=== PATIENT | male | born 1975 | race Caucasian/White ===

== ENCOUNTER 2021-07-01 10:23 | Day surgery (SDC) | payer OTHER ==
[2021-06-22 10:21] LABS: BASOPHILS # (AUTO) 0.1 X10'3 (0-0.2); BASOPHILS % (AUTO) 1.2 % (0-1); EOSINOPHILS # (AUTO) 0.4 X10'3 (0-0.9); EOSINOPHILS % (AUTO) 4.8 % (0-6); LYMPHOCYTES # (AUTO) 2.4 X10'3 (1.1-4.8); LYMPHOCYTES % (AUTO) 27.5 % (21-51); MEAN CORPUSCULAR HEMOGLOBIN 30.7 PG (27.0-31.0); MEAN CORPUSCULAR HGB CONC 34.7 g/dL (33.0-36.5); MEAN CORPUSCULAR VOLUME 88.6 FL (78-98); MEAN PLATELET VOLUME 9.5 FL (7.4-10.4); MONOCYTES # (AUTO) 0.9 X10'3 (0-0.9); MONOCYTES % (AUTO) 10.6 % (2-12); NEUTROPHILS # (AUTO) 4.8 X10'3 (1.8-7.7); NEUTROPHILS % (AUTO) 55.9 % (42-75); PRE OP HEMATOCRIT 50.8 % (42.0-52.0); PRE OP HEMOGLOBIN 17.6 g/dL (14.0-17.9); PRE OP PLATELET COUNT 231 X10'3 (140-440); RED BLOOD COUNT 5.73 X10'6 (4.70-6.10); RED CELL DISTRIBUTION WIDTH 13.5 % (11.5-14.5)
[2021-06-22 10:28] LABS: BLOOD UREA NITROGEN 12 MG/DL (7-18); BUN/CREATININE RATIO 9.6 (5.4-32.0); CHLORIDE 106 MMOL/L (99-107); CREATININE 1.25 MG/DL (0.60-1.10); PRE OP BILIRUB, TOTAL 0.7 MG/DL (0.0-1.0); PRE OP GLUCOSE 95 MG/DL (70-104); PRE OP POTASSIUM 4.6 MMOL/L (3.4-5.1); PRE OP SODIUM 141 MMOL/L (135-145); eGFR 63 ML/MIN
[2021-06-22 10:29] LABS: ALBUMIN 4.2 G/DL (3.4-5.0); ALBUMIN/GLOBULIN RATIO 1.1 (1.1-1.5); ALKALINE PHOSPHATASE 94 IU/L (46-116); CALCIUM 9.1 MG/DL (8.5-10.1); PRE OP ALT 44 U/L (30-65); PRE OP AST 20 U/L (10-37); TOTAL CARBON DIOXIDE 29.5 MMOL/L (24-32); TOTAL PROTEIN 7.9 G/DL (6.4-8.2)
[2021-06-22 10:44] LABS: PRE OP ANION GAP 6 (8-16)
[~2021-07-01] VITALS: Ht 190.5 cm; Wt 144.2 kg
[2021-07-01] VITALS (23 sets, daily range): BP systolic 93–138; BP diastolic 55–82
[~2021-07-01 10:23] MED LIST: ALBU8HFA IH; CYCL-1 PO; NAPR-996 PO; OMEP40CA21 PO; albuterol 2.5 MG/3 ML nebule NEB PRN; ceFAZolin inj. 3,000 MG in normal saline 100ml IV soln 100 ML IV ONE; famotidine 20mg tablet PO ONE; tranexamic acid inj. 1,400 MG in normal saline 100ml IV soln 86 ML IV ONE; vancomycin 1,500 MG in NS 300ml IV soln IV ONE
[2021-07-01] MEDS: ringers solution, lacted 1,000 ML IV SCH ×2 (11:43→23:08)
[2021-07-01] MEDS ORDERED: morphine 2 MG/ML inj. syringe IV PRN (11:55)
[2021-07-01] MEDS ORDERED: labetalol 20mg/4ml (5mg/ml) syringe IV PRN (11:55)
[2021-07-01] MEDS ORDERED: hydrALAZINE 20mg/ml inj. IV PRN (11:55)
[2021-07-01] MEDS ORDERED: fentaNYL/PF 50MCG/1 ML 2ML syringe IV PRN ×2 (11:55)
[2021-07-01] MEDS ORDERED: ondansetron/PF 4mg/2ml inj IV PRN ×2 (11:55→16:15)
[2021-07-01] MEDS ORDERED: ROPIVAcaine 0.2%/PF PUMP/bolus 545 ML INTERSCALE SCH (11:55)
[2021-07-01] MEDS ORDERED: ringers solution, lacted 1,000 ML IV SCH (11:55)
[2021-07-01] MEDS ORDERED: ROPIVAcaine 0.2% (10 MG/5 ML) BOLUS INJECTION INTERSCALE PRN (11:55)
[2021-07-01] MEDS ORDERED: morphine 4 MG/ML inj SYRINge IV PRN (11:55)
[2021-07-01] MEDS ORDERED: vancomycin 1,000mg inj ONE (13:07)
[2021-07-01] MEDS ORDERED: scopolamine 1mg/72 hr patch TD ONE (13:10)
[2021-07-01] MEDS ORDERED: succinylcholine 20mg/ml inj IV ONE (13:24)
[2021-07-01] MEDS ORDERED: sevoflurane 250ml liquid IH ONE (13:24)
[2021-07-01] MEDS ORDERED: dexmedetomidine 200mcg/2ml inj. IV ONE (13:27)
[2021-07-01] MEDS ORDERED: midazolam 1 mg/ML 2ml injection ONE (13:31)
[2021-07-01] MEDS ORDERED: fentaNYL/PF 50MCG/1 ML 2ML syringe ONE ×2 (13:31→15:46)
[2021-07-01] MEDS ORDERED: propofol inj 20 ML IV ONE (14:02)
[2021-07-01] MEDS ORDERED: LIDOcaine 2% (20mg/ml) 5ml vial ONE (14:02)
[2021-07-01] MEDS ORDERED: dexamethasone sod phosphate 4mg/ml inj. ONE (14:02)
[2021-07-01] MEDS ORDERED: ondansetron/PF 4mg/2ml inj ONE (14:02)
[2021-07-01] MEDS ORDERED: acetaminophen 1,000mg/100ml IV 100 ML IV ONE (14:05)
[2021-07-01] MEDS ORDERED: ketorolac trometh. 30mg/ml inj. ONE (14:05)
[2021-07-01] MEDS ORDERED: ePHEDrine 50MG/ML INJ. ONE (14:32)
[2021-07-01] MEDS ORDERED: HYDROmorphone inj. 0.5 MG/0.5 ML DISP.SYRIN IV PRN (16:15)
[2021-07-01] MEDS ORDERED: magnesium hydroxide 30ml (MOM) UD suspension PO PRN (16:15)
[2021-07-01] MEDS ORDERED: oxyCODONE IR 5mg (immed. release) tablet PO PRN ×2 (16:15)
[2021-07-01] MEDS ORDERED: HYDROmorphone 1 mg/ml syringe IV PRN (16:15)
[2021-07-01] MEDS ORDERED: diphenhydrAMINE 25mg capsule PO PRN ×2 (16:15)
[2021-07-01] MEDS ORDERED: bisacodyl 10mg suppository rectal RC PRN (16:15)
[2021-07-01] MEDS ORDERED: acetaminophen 325mg tablet PO PRN (16:15)
--- NOTE | 2021-07-01 16:29 | NUR ---
Received from OR via BED, accompanied by Anesthesiologist DR. SHAW and report given by Anesthesiolgist AND OR NURSE. PT ARRIVED DROWSY WITH LMA AND 10L OF 02 VIA MASK. LMA WAS REMOVED PT WAS ARRIVING. 18G IV TO LEFT HAND RUNNING LR. PT HAS RIGHT SHOULDER ISLAND DRESSING THAT IS C/D/I. ICE PACK AND SLING PRESENT ON RIGHT SHOULDER. LEFT RADIAL PULSE PALPABLE. PT VSS. DENIES PAIN AND NAUSEA. ON-QUE CATHETER ATTACHED TO LEFT SHOULDER AND READY FOR ACCESS. WILL CONTINUE TO MONITOR. Addendum: 07/01/21 at 1714 by Rhonda Sharp RN Amended: Links added.
[2021-07-01] MEDS ORDERED: albuterol 2.5 MG/3 ML nebule NEB PRN (16:35)
[2021-07-01] MEDS ORDERED: TRANEXAMIC ACID IV ONE (18:00)
[2021-07-01] MEDS ORDERED: NORMAL SALINE IV ONE (18:00)
--- NOTE | 2021-07-01 18:39 | NUR ---
Report called to receiving nurse ERLINDA PETERSON. Transferred via BED Belongings AND CLOTHING SENT WITH PT TO ROOM. AT BEDSIDE AND WENT WITH PT TO SURGICAL UNIT. RIGHT SHOULDER DRESSING C/D/I. VSS. DENIES PAIN AND NAUSEA. Special Issues communicated to receiving nurse. BED IN LOW POSITION, 2 RAILS UP, CALL LIGHT IN REACH AND AT BEDSIDE. RN NOTIFIED OF PT ARRIVAL TO ASSUME CARE. Addendum: 07/01/21 at 1851 by Rhonda Sharp RN Amended: Links added.
[2021-07-01] MEDS ORDERED: vancomycin/NS 1 GM ADD-VANTAGE 250 ML IV SCH (20:00)
[2021-07-01] MEDS: potassium cl 20mEq in 1/2 NS 1,000 ML IV SCH (20:10)
[2021-07-01] MEDS: acetaminophen 325mg tablet PO SCH (20:20)
[2021-07-01] MEDS: gabapentin 300mg capsule PO SCH (20:37)
[2021-07-01] MEDS ORDERED: cyclobenzaprine 10mg tablet PO SCH (21:00)
[2021-07-01] MEDS ORDERED: sennosides 8.6mg tablet PO SCH (21:00)
[2021-07-02] VITALS: BP 117/70
[2021-07-02] MEDS: potassium cl 20mEq in 1/2 NS 1,000 ML IV SCH ×2 (00:15→08:15)
[2021-07-02] MEDS: ceFAZolin/D5W- 1GM premix 50 ML IV SCH ×2 (00:27→07:34)
[2021-07-02] MEDS: acetaminophen 325mg tablet PO SCH ×2 (02:12→07:34)
[2021-07-02 04:01] VITALS: BP 139/80
[2021-07-02 06:27] LABS: BASOPHILS % (AUTO) 0.2 % (0-1); EOSINOPHILS % (AUTO) 0 % (0-6); HEMOGLOBIN 14.9 g/dl (14.0-17.9); LYMPHOCYTES # (AUTO) 0.8 X10'3 (1.1-4.8); LYMPHOCYTES % (AUTO) 4.1 % (21-51); MEAN CORPUSCULAR HEMOGLOBIN 30.9 PG (27.0-31.0); MEAN CORPUSCULAR HGB CONC 34.6 g/dL (33.0-36.5); MEAN CORPUSCULAR VOLUME 89.3 FL (78-98); MEAN PLATELET VOLUME 9.3 FL (7.4-10.4); MONOCYTES # (AUTO) 1.3 X10'3 (0-0.9); MONOCYTES % (AUTO) 6.5 % (2-12); NEUTROPHILS # (AUTO) 17.9 X10'3 (1.8-7.7); NEUTROPHILS % (AUTO) 89.2 % (42-75); PLATELET COUNT 244 X10'3 (140-440); RED BLOOD COUNT 4.82 X10'6 (4.70-6.10); RED CELL DISTRIBUTION WIDTH 13.4 % (11.5-14.5); WHITE BLOOD COUNT 20.1 X10'3 (4.5-11.0)
--- NOTE | 2021-07-02 06:30 | NUR ---
PT RESTING IN BED. HAS GOOD CSM R UPPER EXTREMITY . R UE WARM
--- NOTE | 2021-07-02 06:32 | NUR ---
ON Q IS AT 14ML/HR Addendum: 07/02/21 at 0642 by Curtis Gregg RN STILL HAS SOME NUMBNESS TO R SHOULDER
[2021-07-02 06:46] LABS: ANION GAP 10 (8-16); CHLORIDE 102 MMOL/L (99-107); POTASSIUM 4.1 MMOL/L (3.5-5.1); SODIUM 133 MMOL/L (135-145); TOTAL CARBON DIOXIDE 21.3 MMOL/L (24-32)
--- NOTE | 2021-07-02 07:12 | NUR ---
Patient in room [facility]. I have received report from ERLINDA Acevedo and had the opportunity to ask questions and assume patient care.
[2021-07-02] MEDS: gabapentin 300mg capsule PO SCH (07:34)
[2021-07-02] MEDS ORDERED: pantoprazole 40mg Tablet.DR PO SCH (08:00)
[2021-07-02 08:26] VITALS: BP 121/64
[2021-07-02] MEDS ORDERED: aspirin 325mg tablet PO SCH (08:30)
--- NOTE | 2021-07-02 11:05 | NUR ---
Discussed with patient discharge information including ONQ ball management. Full ONQ ball given to patient and educated on how to change when current one empties. Patient verbalizes understanding of teaching. x2 cold packs given to patient to take home as well as x3 island dressing. Patient dc'd with all personal belongings.
[2021-07-02] MEDS ORDERED: celeCOXIB 100mg capsule PO SCH (20:00)
[2021-07-03] MEDS ORDERED: acetaminophen 325mg tablet PO PRN (16:15)
== END 2021-07-02 11:05 | disposition home or self-care (01) ==
LOC: PAS 10:23 → EDBD 12:30 → SUR 3N 18:47 → PAS 07-02 11:05
PROVIDERS: ATTEND Orthopaedic Surgery
DX: M19.011 Primary osteoarthritis, right shoulder (principal); G89.18 Other acute postprocedural pain; J45.909 Unspecified asthma, uncomplicated; E66.01 Morbid (severe) obesity due to excess calories; Z68.39 Body mass index [BMI] 39.0-39.9, adult; Z98.890 Other specified postprocedural states; Z79.899 Other long term (current) drug therapy; Z72.89 Other problems related to lifestyle; Z20.822 Contact with and (suspected) exposure to COVID-19
CPT/HCPCS: 23472; 36415; 64416; 73020; 76937; 80051; 80053; 82948; 85025; 93005; 97110; 97116; 97161; 97530; A6402; C1713; C1776; J0131; J0330; J0690; J1100; J1885; J2250; J2405; J2704; J2795; J3010; J3370; J3480; J3490; J7030; J7040; J7120; U0003; U0005; Z7506; Z7508; Z7512; A4565; A4618; A7000; C9250; G0378

== ENCOUNTER 2023-11-16 15:58 | Outpatient (CLI) | payer MEDICAID ==
[~2023-11-16 15:58] MED LIST changes: -albuterol 2.5 MG/3 ML nebule NEB PRN; -ceFAZolin inj. 3,000 MG in normal saline 100ml IV soln 100 ML IV ONE; -famotidine 20mg tablet PO ONE; -tranexamic acid inj. 1,400 MG in normal saline 100ml IV soln 86 ML IV ONE; -vancomycin 1,500 MG in NS 300ml IV soln IV ONE
== END 2023-11-16 23:59 | disposition home or self-care (01) ==
LOC: RAD 15:58
PROVIDERS: ATTEND Nurse Practitioner Family
DX: M25.511 Pain in right shoulder (principal); Z96.611 Presence of right artificial shoulder joint
CPT/HCPCS: 73030